=== PATIENT | female | born 1960 | race Caucasian/White ===

== ENCOUNTER 2017-09-17 15:03 | Inpatient (IN) ==
[2017-09-17] MEDS ORDERED: methylPREDNISolone SOD SUC 125 MG/2 ML VIAL IV STA (15:25)
[2017-09-17] MEDS ORDERED: KETOROLAC 30 MG/1 ML VIAL IV STA (15:25)
[2017-09-17] MEDS ORDERED: AZITHROMYCIN INJ 500 MG in SODIUM CHLORIDE 0.9% 250 ML IV STA (15:25)
[2017-09-17] MEDS ORDERED: ALBUTEROL/IPRATROPIUM 3 ML NEB RESP TX STA (15:25)
[2017-09-17] MEDS ORDERED: cefTRIAXone 1,000 MG in SODIUM CHLORIDE 0.9% 100 ML IV STA (15:28)
[2017-09-17] MEDS ORDERED: TERBUTALINE 1 MG/1 ML VIAL SUBCUT ONE (16:14)
[2017-09-17] MEDS ORDERED: cefTRIAXone 1,000 MG VIAL ONE (16:15)
[2017-09-17] MEDS ORDERED: methylPREDNISolone SOD SUC 125 MG/2 ML VIAL ONE (16:15)
[2017-09-17] MEDS ORDERED: KETOROLAC 30 MG/1 ML VIAL ONE (16:15)
[2017-09-17 16:19] LABS: Basophils # 0.1 10*3/uL (0.0-0.2); Basophils % 0.3 % (0.0-0.8); Eosinophils # 0.2 10*3/uL (0.0-0.87); Eosinophils % 0.9 % (0.00-10.9); Hematocrit 32.4 VOL% (35.7-47.0); Hemoglobin 10.7 GM/DL (12.0-16.0); Immature Granulocytes % 0.4 %; Immature Granulocytes Absolute 0.07 #; Lymphocytes # 3.8 10*3/uL (1.4-4.0); Lymphocytes % 21.3 % (21.3-54.2); Mean Corpuscular Hemoglobin 28 PG (27-34); Mean Corpuscular Volume 83.5 FL (87-102); Monocytes # 1.3 10*3/uL (0.11-0.8); Monocytes % 7.1 % (1.7-12.7); Neutrophils # 12.5 10*3/uL (1.4-7.4); Platelet Count 540 T/CUMM (130-400); Red Blood Count 3.88 MC/CUMM (3.8-5.5); Red Cell Distribution Width 13.7 % (9.3-17.3); White Blood Count 17.8 T/CUMM (4-12)
[2017-09-17 16:29] LABS: PT Patient Result 10.3 SECS; Partial Thromboplastin Time 34.6 SECS (0-40)
[2017-09-17 16:48] LABS: Alanine Aminotransferase 22 U/L (13-56); Albumin 2.9 G/DL (3.4-5.0); Alkaline Phosphatase 157 U/L (45-117); Aspartate Amino Transferase 19 U/L (0-37); Blood Urea Nitrogen 16 MG/DL (7-18); Calcium 9.4 MG/DL (8.5-10.1); Glucose 72 MG/DL (74-106); Osmolality,Calculated 267.2 MOS/KG (273-304); Potassium 3.7 MMOL/L (3.5-5.1); Sodium 134 MMOL/L (136-145); Total Protein 7.6 G/DL (6.4-8.3); Troponin I Only < 0.015 NG/ML (0.00-0.045)
[2017-09-17] MEDS: TERBUTALINE 1 MG/1 ML VIAL SUBCUT SCH ×2 (16:49→17:25)
[2017-09-17] MEDS ORDERED: DEXTROSE 50% 25 GM/50 ML VIAL IV PRN (22:04)
[2017-09-17] MEDS ORDERED: GLUCAGON 1 MG VIAL IM PRN (22:04)
[2017-09-17] MEDS ORDERED: ALBUTEROL/IPRATROPIUM 3 ML NEB RESP TX PRN (22:04)
[2017-09-17] MEDS ORDERED: ONDANSETRON 4 MG/2 ML VIAL IV PRN (22:04)
[2017-09-18] MEDS: LEVOFLOXACIN INJ 750 MG in PREMIX 1 EACH IV SCH ×3 (00:15→22:02)
[2017-09-18] MEDS: INSULIN REGULAR 100 UNIT/ML SUBCUT SCH ×5 (00:15→21:14)
[2017-09-18] MEDS: methylPREDNISolone SOD SUC 125 MG/2 ML VIAL IV SCH ×4 (00:15→21:13)
[2017-09-18] MEDS: VENLAFAXINE XR 75 MG CAPSULE PO SCH (08:50)
[2017-09-18] MEDS: CLOPIDOGREL 75 MG TABLET PO SCH (08:50)
[2017-09-18] MEDS: metFORMIN 500 MG TABLET PO SCH ×2 (08:50→16:06)
[2017-09-18] MEDS: LISINOPRIL/HCTZ 10-12.5 MG TABLET PO SCH (08:50)
[2017-09-18] MEDS: PANTOPRAZOLE 40 MG TABLET PO SCH (08:50)
[2017-09-18] MEDS: SIMVASTATIN 40 MG TABLET PO SCH ×2 (08:51→21:14)
[2017-09-18] MEDS: CARVEDILOL 6.25 MG TABLET PO SCH ×2 (08:51→21:13)
[2017-09-18] MEDS: RANOLAZINE 500 MG TABLET PO SCH ×2 (08:51→21:13)
[2017-09-18 09:19] LABS: Basophils % 0.1 % (0.0-0.8); Hematocrit 34.4 VOL% (35.7-47.0); Hemoglobin 11.2 GM/DL (12.0-16.0); Immature Granulocytes % 1.1 %; Immature Granulocytes Absolute 0.15 #; Lymphocytes # 1.1 10*3/uL (1.4-4.0); Lymphocytes % 7.8 % (21.3-54.2); Mean Corpuscular HGB Conc 32.6 GM/DL (32-36); Mean Corpuscular Hemoglobin 27 PG (27-34); Mean Corpuscular Volume 83.7 FL (87-102); Mean Platelet Volume 9.1 FL (9.6-12.0); Monocytes # 0.2 10*3/uL (0.11-0.8); Monocytes % 1.5 % (1.7-12.7); Neutrophils % 89.5 % (38.7-73.9); Platelet Count 551 T/CUMM (130-400); Red Blood Count 4.11 MC/CUMM (3.8-5.5); Red Cell Distribution Width 13.5 % (9.3-17.3); White Blood Count 13.4 T/CUMM (4-12)
[2017-09-18 09:48] LABS: Calcium 9.2 MG/DL (8.5-10.1); Magnesium 1.9 MG/DL (1.8-2.4); Potassium 4.7 MMOL/L (3.5-5.1)
[2017-09-18] MEDS: NICOTINE 14 MG/24 HR PATCH TRANSDERM SCH (12:56)
[2017-09-18] MEDS: FLUTICASONE/SALMETEROL 250-50 DISKUS 14 DOSE INH SCH ×2 (16:06→21:14)
[2017-09-19 03:07] LABS: Basophils % 0.1 % (0.0-0.8); Hematocrit 29.4 VOL% (35.7-47.0); Hemoglobin 9.9 GM/DL (12.0-16.0); Immature Granulocytes % 3.5 %; Immature Granulocytes Absolute 0.75 #; Lymphocytes # 1.1 10*3/uL (1.4-4.0); Lymphocytes % 5.2 % (21.3-54.2); Mean Corpuscular HGB Conc 33.7 GM/DL (32-36); Mean Corpuscular Hemoglobin 27 PG (27-34); Mean Corpuscular Volume 81.4 FL (87-102); Mean Platelet Volume 9.1 FL (9.6-12.0); Monocytes # 0.4 10*3/uL (0.11-0.8); Monocytes % 1.9 % (1.7-12.7); Neutrophils % 89.3 % (38.7-73.9); Platelet Count 500 T/CUMM (130-400); Red Blood Count 3.61 MC/CUMM (3.8-5.5); Red Cell Distribution Width 13.7 % (9.3-17.3); White Blood Count 21.3 T/CUMM (4-12)
[2017-09-19 03:50] LABS: Calcium 8.6 MG/DL (8.5-10.1); Osmolality,Calculated 278.8 MOS/KG (273-304); Potassium 4.5 MMOL/L (3.5-5.1)
[2017-09-19 04:48] LABS: Band Neutrophils 2 % (0-10); Lymphocytes 4 % (20-55); Platelet Estimate Increased; Segmented Neutrophils 94 % (50-85); Total Cells Counted 100
[2017-09-19] MEDS: VENLAFAXINE XR 75 MG CAPSULE PO SCH (08:27)
[2017-09-19] MEDS: LISINOPRIL/HCTZ 10-12.5 MG TABLET PO SCH (08:27)
[2017-09-19] MEDS: metFORMIN 500 MG TABLET PO SCH ×2 (08:27→16:30)
[2017-09-19] MEDS: NICOTINE 14 MG/24 HR PATCH TRANSDERM SCH (08:27)
[2017-09-19] MEDS: SIMVASTATIN 40 MG TABLET PO SCH ×2 (08:27→21:28)
[2017-09-19] MEDS: CLOPIDOGREL 75 MG TABLET PO SCH (08:27)
[2017-09-19] MEDS: CARVEDILOL 6.25 MG TABLET PO SCH ×2 (08:28→21:28)
[2017-09-19] MEDS: RANOLAZINE 500 MG TABLET PO SCH ×2 (08:28→21:28)
[2017-09-19] MEDS: methylPREDNISolone SOD SUC 125 MG/2 ML VIAL IV SCH ×3 (08:28→21:27)
[2017-09-19] MEDS: PANTOPRAZOLE 40 MG TABLET PO SCH (08:28)
[2017-09-19] MEDS: INSULIN REGULAR 100 UNIT/ML SUBCUT SCH ×4 (08:32→21:28)
[2017-09-19] MEDS: FLUTICASONE/SALMETEROL 250-50 DISKUS 14 DOSE INH SCH ×2 (08:35→21:28)
[2017-09-19] MEDS: guaiFENesin 200 MG/10 ML UDCUP PO SCH ×2 (16:30→21:30)
[2017-09-19] MEDS: LEVOFLOXACIN INJ 750 MG in PREMIX 1 EACH IV SCH (21:30)
[2017-09-20] MEDS: guaiFENesin 200 MG/10 ML UDCUP PO SCH ×4 (05:06→21:37)
[2017-09-20 05:41] LABS: Basophils % 0.1 % (0.0-0.8); Hematocrit 32.7 VOL% (35.7-47.0); Hemoglobin 10.7 GM/DL (12.0-16.0); Immature Granulocytes % 1.6 %; Immature Granulocytes Absolute 0.26 #; Lymphocytes # 1.1 10*3/uL (1.4-4.0); Lymphocytes % 6.5 % (21.3-54.2); Mean Corpuscular HGB Conc 32.7 GM/DL (32-36); Mean Corpuscular Hemoglobin 27 PG (27-34); Mean Corpuscular Volume 82.6 FL (87-102); Mean Platelet Volume 8.6 FL (9.6-12.0); Monocytes # 0.2 10*3/uL (0.11-0.8); Monocytes % 1.2 % (1.7-12.7); Neutrophils # 15.2 10*3/uL (1.4-7.4); Neutrophils % 90.6 % (38.7-73.9); Platelet Count 488 T/CUMM (130-400); Red Blood Count 3.96 MC/CUMM (3.8-5.5); Red Cell Distribution Width 13.8 % (9.3-17.3); White Blood Count 16.7 T/CUMM (4-12)
[2017-09-20 06:07] LABS: Calcium 8.9 MG/DL (8.5-10.1); Magnesium 1.9 MG/DL (1.8-2.4); Osmolality,Calculated 287.5 MOS/KG (273-304); Potassium 4.2 MMOL/L (3.5-5.1)
[2017-09-20 06:45] LABS: Band Neutrophils 4 % (0-10); Lymphocytes 7 % (20-55); Platelet Estimate Increased; Segmented Neutrophils 88 % (50-85); Total Cells Counted 100
[2017-09-20] MEDS: INSULIN REGULAR 100 UNIT/ML SUBCUT SCH ×4 (08:52→21:37)
[2017-09-20] MEDS: methylPREDNISolone SOD SUC 125 MG/2 ML VIAL IV SCH (09:40)
[2017-09-20] MEDS: SIMVASTATIN 40 MG TABLET PO SCH ×2 (09:40→21:37)
[2017-09-20] MEDS: VENLAFAXINE XR 75 MG CAPSULE PO SCH (09:40)
[2017-09-20] MEDS: LISINOPRIL/HCTZ 10-12.5 MG TABLET PO SCH (09:40)
[2017-09-20] MEDS: metFORMIN 500 MG TABLET PO SCH ×2 (09:40→18:00)
[2017-09-20] MEDS: RANOLAZINE 500 MG TABLET PO SCH ×2 (09:40→21:37)
[2017-09-20] MEDS: PANTOPRAZOLE 40 MG TABLET PO SCH (09:41)
[2017-09-20] MEDS: CARVEDILOL 6.25 MG TABLET PO SCH ×2 (09:41→21:37)
[2017-09-20] MEDS: NICOTINE 14 MG/24 HR PATCH TRANSDERM SCH (09:41)
[2017-09-20] MEDS: CLOPIDOGREL 75 MG TABLET PO SCH (09:41)
[2017-09-20] MEDS: FLUTICASONE/SALMETEROL 250-50 DISKUS 14 DOSE INH SCH ×2 (09:42→21:38)
[2017-09-20] MEDS ORDERED: hydrALAZINE 20 MG/1 ML VIAL IV PRN (10:19)
[2017-09-20] MEDS ORDERED: oxyCODONE/ACETAMINOPHEN 5-325 MG TABLET PO PRN (10:32)
[2017-09-20] MEDS: oxyCODONE/ACETAMINOPHEN 5-325 MG TABLET PO PRN ×2 (11:05→18:00)
[2017-09-20] MEDS: methylPREDNISolone SOD SUC 40 MG/1 ML VIAL IV SCH ×2 (13:46→21:37)
[2017-09-20] MEDS: LEVOFLOXACIN INJ 750 MG in PREMIX 1 EACH IV SCH (21:37)
[2017-09-21] MEDS: oxyCODONE/ACETAMINOPHEN 5-325 MG TABLET PO PRN ×3 (01:19→13:34)
[2017-09-21 03:20] LABS: Basophils % 0.1 % (0.0-0.8); Hematocrit 32.1 VOL% (35.7-47.0); Hemoglobin 10.8 GM/DL (12.0-16.0); Immature Granulocytes % 2.5 %; Immature Granulocytes Absolute 0.37 #; Lymphocytes # 1.2 10*3/uL (1.4-4.0); Lymphocytes % 7.9 % (21.3-54.2); Mean Corpuscular HGB Conc 33.6 GM/DL (32-36); Mean Corpuscular Hemoglobin 28 PG (27-34); Mean Corpuscular Volume 81.9 FL (87-102); Mean Platelet Volume 8.8 FL (9.6-12.0); Monocytes # 0.3 10*3/uL (0.11-0.8); Monocytes % 2.3 % (1.7-12.7); Neutrophils # 12.7 10*3/uL (1.4-7.4); Neutrophils % 87.2 % (38.7-73.9); Platelet Count 473 T/CUMM (130-400); Red Blood Count 3.92 MC/CUMM (3.8-5.5); Red Cell Distribution Width 13.9 % (9.3-17.3); White Blood Count 14.6 T/CUMM (4-12)
[2017-09-21 03:53] LABS: Calcium 8.8 MG/DL (8.5-10.1); Magnesium 1.7 MG/DL (1.8-2.4); Osmolality,Calculated 288.4 MOS/KG (273-304); Potassium 4.2 MMOL/L (3.5-5.1)
[2017-09-21] MEDS: methylPREDNISolone SOD SUC 40 MG/1 ML VIAL IV SCH ×2 (04:26→11:30)
[2017-09-21] MEDS: guaiFENesin 200 MG/10 ML UDCUP PO SCH ×2 (04:26→11:30)
[2017-09-21] MEDS: VENLAFAXINE XR 75 MG CAPSULE PO SCH (08:56)
[2017-09-21] MEDS: SIMVASTATIN 40 MG TABLET PO SCH (08:56)
[2017-09-21] MEDS: CLOPIDOGREL 75 MG TABLET PO SCH (08:56)
[2017-09-21] MEDS: RANOLAZINE 500 MG TABLET PO SCH (08:56)
[2017-09-21] MEDS: metFORMIN 500 MG TABLET PO SCH (08:56)
[2017-09-21] MEDS: NICOTINE 14 MG/24 HR PATCH TRANSDERM SCH (08:56)
[2017-09-21] MEDS: CARVEDILOL 6.25 MG TABLET PO SCH (08:56)
[2017-09-21] MEDS: PANTOPRAZOLE 40 MG TABLET PO SCH (08:56)
[2017-09-21] MEDS: FLUTICASONE/SALMETEROL 250-50 DISKUS 14 DOSE INH SCH (08:57)
[2017-09-21] MEDS: LISINOPRIL/HCTZ 10-12.5 MG TABLET PO SCH (09:03)
[2017-09-21] MEDS: INSULIN REGULAR 100 UNIT/ML SUBCUT SCH ×2 (10:02→12:24)
[2017-09-21 12:50] VITALS: BP 158/87
[2017-09-21] MEDS: LEVOFLOXACIN INJ 750 MG in PREMIX 1 EACH IV SCH (15:03)
== END 2017-09-21 16:41 | disposition home or self-care (01) | DRG 190 ==
LOC: N.ED 15:03 → N.EDINP 17:46 → N.TELEN 18:58
PROVIDERS: ADMIT Family Medicine; ATTEND Family Medicine

== ENCOUNTER 2018-10-24 15:07 | Inpatient (IN) ==
[2018-10-24 18:29] LABS: Basophils # 0.1 10*3/uL (0.0-0.2); Basophils % 0.4 % (0.0-0.8); Eosinophils % 0.2 % (0.00-10.9); Hematocrit 32.8 VOL% (35.7-47.0); Hemoglobin 10.1 GM/DL (12.0-16.0); Immature Granulocytes % 0.4 %; Immature Granulocytes Absolute 0.05 #; Lymphocytes # 3.2 10*3/uL (1.4-4.0); Lymphocytes % 25.7 % (21.3-54.2); Mean Corpuscular HGB Conc 30.8 GM/DL (32-36); Mean Corpuscular Hemoglobin 23 PG (27-34); Monocytes # 0.9 10*3/uL (0.11-0.8); Monocytes % 7.1 % (1.7-12.7); NRBC # 0.02 10*3/uL; Neutrophils # 8.4 10*3/uL (1.4-7.4); Neutrophils % 66.2 % (38.7-73.9); Platelet Count 444 T/CUMM (130-400); Red Blood Count 4.43 MC/CUMM (3.8-5.5); White Blood Count 12.6 T/CUMM (4-12)
[2018-10-24 18:50] LABS: Albumin 3.4 G/DL (3.4-5.0); Bilirubin,Total 0.9 MG/DL (0.2-1.0); Calcium 8.7 MG/DL (8.5-10.1); Potassium 4.5 MMOL/L (3.5-5.1); Total Protein 6.7 G/DL (6.4-8.3)
[2018-10-24] MEDS ORDERED: cefTRIAXone 1,000 MG in SODIUM CHLORIDE 0.9% 100 ML IV STA (19:07)
[2018-10-24] MEDS ORDERED: FUROSEMIDE 20 MG/2 ML VIAL IV STA (19:07)
[2018-10-24] MEDS ORDERED: DEXTROSE 50% 25 GM/50 ML VIAL IV PRN (20:01)
[2018-10-24] MEDS ORDERED: ACETAMINOPHEN 325 MG TABLET PO PRN (20:01)
[2018-10-24] MEDS ORDERED: MAGNESIUM SULF RIDER 2 GM in PREMIX 1 EACH IV PRN (20:01)
[2018-10-24] MEDS ORDERED: MAGNESIUM SULF RIDER 4 GM in PREMIX 1 EACH IV PRN (20:01)
[2018-10-24] MEDS ORDERED: GLUCAGON 1 MG VIAL IM PRN (20:01)
[2018-10-24] MEDS ORDERED: ONDANSETRON 4 MG/2 ML VIAL IV PRN (20:01)
[2018-10-24] MEDS: SIMVASTATIN 40 MG TABLET PO SCH (21:20)
[2018-10-24] MEDS: RANOLAZINE 500 MG TABLET PO SCH (21:20)
[2018-10-24] MEDS: INSULIN REGULAR 100 UNIT/ML SUBCUT SCH (21:20)
[2018-10-24] MEDS: CARVEDILOL 6.25 MG TABLET PO SCH (22:42)
[2018-10-25] MEDS: ALBUTEROL/IPRATROPIUM 3 ML NEB RESP TX SCH ×4 (00:43→19:09)
[2018-10-25 06:53] LABS: Basophils % 0.3 % (0.0-0.8); Eosinophils # 0.1 10*3/uL (0.0-0.87); Eosinophils % 0.6 % (0.00-10.9); Hematocrit 30.2 VOL% (35.7-47.0); Hemoglobin 9.3 GM/DL (12.0-16.0); Immature Granulocytes % 0.3 %; Immature Granulocytes Absolute 0.03 #; Lymphocytes # 2.1 10*3/uL (1.4-4.0); Lymphocytes % 23.9 % (21.3-54.2); Mean Corpuscular HGB Conc 30.8 GM/DL (32-36); Mean Corpuscular Hemoglobin 23 PG (27-34); Mean Corpuscular Volume 73.7 FL (87-102); Mean Platelet Volume 9.8 FL (9.6-12.0); Monocytes # 0.6 10*3/uL (0.11-0.8); Monocytes % 7.1 % (1.7-12.7); Neutrophils % 67.8 % (38.7-73.9); Platelet Count 358 T/CUMM (130-400); Red Cell Distribution Width 16.8 % (9.3-17.3); White Blood Count 8.9 T/CUMM (4-12)
[2018-10-25 07:21] LABS: Albumin 2.8 G/DL (3.4-5.0); Bilirubin,Total 0.6 MG/DL (0.2-1.0); Calcium 8.3 MG/DL (8.5-10.1); Osmolality,Calculated 285.5 MOS/KG (273-304); Potassium 3.5 MMOL/L (3.5-5.1); Total Protein 5.8 G/DL (6.4-8.3)
[2018-10-25] MEDS: INSULIN REGULAR 100 UNIT/ML SUBCUT SCH ×4 (07:34→20:54)
[2018-10-25] MEDS: CARVEDILOL 6.25 MG TABLET PO SCH ×2 (08:52→20:53)
[2018-10-25] MEDS: RANOLAZINE 500 MG TABLET PO SCH ×2 (08:52→20:53)
[2018-10-25] MEDS: CLOPIDOGREL 75 MG TABLET PO SCH (08:52)
[2018-10-25] MEDS: VENLAFAXINE XR 75 MG CAPSULE PO SCH (08:52)
[2018-10-25] MEDS: NICOTINE 21 MG/24 HR PATCH TRANSDERM SCH (08:53)
[2018-10-25] MEDS: PANTOPRAZOLE 40 MG TABLET PO SCH (08:53)
[2018-10-25] MEDS: ENOXAPARIN 40 MG/0.4 ML SYRINGE SUBCUT SCH (08:53)
[2018-10-25] MEDS: ASPIRIN CHEW 81 MG TABLET PO SCH (08:53)
[2018-10-25] MEDS: FUROSEMIDE 40 MG/4 ML VIAL IV SCH ×2 (08:53→15:05)
[2018-10-25] MEDS ORDERED: NON-FORMULARY MEDICATION (Umeclidinium Brm/Vilanterol Tr [Anoro Ellipta] 1 PUFF) INH SCH (09:00)
[2018-10-25] MEDS ORDERED: SKIN HEALING OINT (AQUAPHOR) 50 GM TUBE TOP PRN (15:22)
[2018-10-25] MEDS: POTASSIUM CHLORIDE 20 MEQ TABLET PO SCH (16:28)
[2018-10-25] MEDS: SIMVASTATIN 40 MG TABLET PO SCH (20:52)
[2018-10-25] MEDS: cefTRIAXone 1,000 MG in SYRINGE 1 EACH IV SCH (20:52)
[2018-10-26] MEDS: ALBUTEROL/IPRATROPIUM 3 ML NEB RESP TX SCH ×4 (00:10→19:20)
[2018-10-26] MEDS ORDERED: NITROGLYCERIN SL 0.4 MG TABLET SL ONE (01:44)
[2018-10-26] MEDS ORDERED: MORPHINE 4 MG/1 ML VIAL ONE (01:45)
[2018-10-26] MEDS ORDERED: ALUM/MAG/SIMETH/LIDO VISC 1:1 30 ML BOTTLE PO ONE (01:54)
[2018-10-26 02:22] LABS: Basophils # 0.1 10*3/uL (0.0-0.2); Basophils % 0.4 % (0.0-0.8); Eosinophils # 0.1 10*3/uL (0.0-0.87); Eosinophils % 0.6 % (0.00-10.9); Hematocrit 33.2 VOL% (35.7-47.0); Hemoglobin 10.1 GM/DL (12.0-16.0); Immature Granulocytes % 0.4 %; Immature Granulocytes Absolute 0.05 #; Lymphocytes # 3.5 10*3/uL (1.4-4.0); Lymphocytes % 26.6 % (21.3-54.2); Mean Corpuscular HGB Conc 30.4 GM/DL (32-36); Mean Corpuscular Hemoglobin 23 PG (27-34); Mean Corpuscular Volume 74.4 FL (87-102); Mean Platelet Volume 10.1 FL (9.6-12.0); Monocytes % 7.7 % (1.7-12.7); Neutrophils # 8.5 10*3/uL (1.4-7.4); Neutrophils % 64.3 % (38.7-73.9); Platelet Count 438 T/CUMM (130-400); Red Blood Count 4.46 MC/CUMM (3.8-5.5); Red Cell Distribution Width 16.9 % (9.3-17.3); White Blood Count 13.2 T/CUMM (4-12)
[2018-10-26 02:27] LABS: Calcium 8.4 MG/DL (8.5-10.1); Osmolality,Calculated 289.4 MOS/KG (273-304); Potassium 4.5 MMOL/L (3.5-5.1)
[2018-10-26] MEDS: INSULIN REGULAR 100 UNIT/ML SUBCUT SCH ×4 (08:02→20:48)
[2018-10-26] MEDS: CLOPIDOGREL 75 MG TABLET PO SCH (08:03)
[2018-10-26] MEDS: RANOLAZINE 500 MG TABLET PO SCH ×2 (08:03→20:47)
[2018-10-26] MEDS: FUROSEMIDE 40 MG/4 ML VIAL IV SCH ×2 (08:03→16:16)
[2018-10-26] MEDS: CARVEDILOL 6.25 MG TABLET PO SCH ×2 (08:03→20:48)
[2018-10-26] MEDS: POTASSIUM CHLORIDE 20 MEQ TABLET PO SCH (08:03)
[2018-10-26] MEDS: VENLAFAXINE XR 75 MG CAPSULE PO SCH (08:03)
[2018-10-26] MEDS: ASPIRIN CHEW 81 MG TABLET PO SCH (08:03)
[2018-10-26] MEDS: PANTOPRAZOLE 40 MG TABLET PO SCH (08:03)
[2018-10-26] MEDS: ENOXAPARIN 40 MG/0.4 ML SYRINGE SUBCUT SCH (08:04)
[2018-10-26] MEDS: NICOTINE 21 MG/24 HR PATCH TRANSDERM SCH (08:04)
[2018-10-26] MEDS: hydrALAZINE 25 MG TABLET PO SCH ×3 (08:12→20:47)
[2018-10-26] MEDS: ALBUMIN 25% 25 GM in PREMIX 1 EACH IV SCH ×2 (15:09→23:47)
[2018-10-26] MEDS: SIMVASTATIN 40 MG TABLET PO SCH (20:47)
[2018-10-26] MEDS: cefTRIAXone 1,000 MG in SYRINGE 1 EACH IV SCH (20:48)
[2018-10-27] MEDS: ALBUTEROL/IPRATROPIUM 3 ML NEB RESP TX SCH ×3 (00:10→20:04)
[2018-10-27] MEDS: ALBUMIN 25% 25 GM in PREMIX 1 EACH IV SCH ×2 (06:30→18:19)
[2018-10-27 06:59] LABS: Basophils % 0.5 % (0.0-0.8); Eosinophils # 0.2 10*3/uL (0.0-0.87); Eosinophils % 1.9 % (0.00-10.9); Hematocrit 31.3 VOL% (35.7-47.0); Hemoglobin 9.3 GM/DL (12.0-16.0); Immature Granulocytes % 0.2 %; Immature Granulocytes Absolute 0.02 #; Mean Corpuscular HGB Conc 29.7 GM/DL (32-36); Mean Corpuscular Hemoglobin 22 PG (27-34); Mean Corpuscular Volume 74.9 FL (87-102); Mean Platelet Volume 10.2 FL (9.6-12.0); Monocytes # 0.6 10*3/uL (0.11-0.8); Monocytes % 6.7 % (1.7-12.7); Neutrophils % 56.7 % (38.7-73.9); Platelet Count 338 T/CUMM (130-400); Red Blood Count 4.18 MC/CUMM (3.8-5.5); White Blood Count 8.8 T/CUMM (4-12)
[2018-10-27 07:50] LABS: Calcium 8.4 MG/DL (8.5-10.1); Osmolality,Calculated 281.7 MOS/KG (273-304); Potassium 3.7 MMOL/L (3.5-5.1)
[2018-10-27 08:35] LABS: INR 1.3; PT Patient Result 13.9 SECS
[2018-10-27] MEDS: NICOTINE 21 MG/24 HR PATCH TRANSDERM SCH (10:30)
[2018-10-27] MEDS: POTASSIUM CHLORIDE 20 MEQ TABLET PO SCH (10:30)
[2018-10-27] MEDS: VENLAFAXINE XR 75 MG CAPSULE PO SCH (10:30)
[2018-10-27] MEDS: CARVEDILOL 6.25 MG TABLET PO SCH ×2 (10:30→21:13)
[2018-10-27] MEDS: PANTOPRAZOLE 40 MG TABLET PO SCH (10:31)
[2018-10-27] MEDS: hydrALAZINE 25 MG TABLET PO SCH ×3 (10:31→21:13)
[2018-10-27 10:32] LABS: Lymphocytes,Pleural Fluid 78 %; Monocytes,Pleural Fluid 7 %; Neutrophils,Pleural Fluid 15 %; RBC,Pleural Fluid 572 T/CUMM
[2018-10-27] MEDS: FUROSEMIDE 40 MG/4 ML VIAL IV SCH ×2 (10:32→18:26)
[2018-10-27] MEDS: RANOLAZINE 500 MG TABLET PO SCH ×2 (10:38→21:13)
[2018-10-27] MEDS: ASPIRIN CHEW 81 MG TABLET PO SCH (10:38)
[2018-10-27] MEDS: INSULIN REGULAR 100 UNIT/ML SUBCUT SCH ×4 (10:39→22:16)
[2018-10-27] MEDS: cefTRIAXone 1,000 MG in SYRINGE 1 EACH IV SCH (21:09)
[2018-10-27] MEDS: SIMVASTATIN 40 MG TABLET PO SCH (21:21)
[2018-10-28] MEDS: ALBUTEROL/IPRATROPIUM 3 ML NEB RESP TX SCH ×4 (02:03→19:01)
[2018-10-28 06:23] LABS: Basophils # 0.1 10*3/uL (0.0-0.2); Basophils % 0.5 % (0.0-0.8); Eosinophils # 0.2 10*3/uL (0.0-0.87); Hematocrit 31.7 VOL% (35.7-47.0); Hemoglobin 9.5 GM/DL (12.0-16.0); Immature Granulocytes % 0.5 %; Immature Granulocytes Absolute 0.05 #; Lymphocytes # 2.8 10*3/uL (1.4-4.0); Lymphocytes % 25.3 % (21.3-54.2); Mean Corpuscular Hemoglobin 23 PG (27-34); Mean Corpuscular Volume 74.9 FL (87-102); Mean Platelet Volume 10.2 FL (9.6-12.0); Monocytes # 0.8 10*3/uL (0.11-0.8); Neutrophils % 64.7 % (38.7-73.9); Platelet Count 333 T/CUMM (130-400); Red Blood Count 4.23 MC/CUMM (3.8-5.5); Red Cell Distribution Width 16.8 % (9.3-17.3); White Blood Count 10.9 T/CUMM (4-12)
[2018-10-28] MEDS: INSULIN REGULAR 100 UNIT/ML SUBCUT SCH ×4 (06:34→21:33)
[2018-10-28 06:45] LABS: Calcium 8.9 MG/DL (8.5-10.1); Osmolality,Calculated 283.5 MOS/KG (273-304); Potassium 3.6 MMOL/L (3.5-5.1)
[2018-10-28] MEDS: VENLAFAXINE XR 75 MG CAPSULE PO SCH (10:03)
[2018-10-28] MEDS: RANOLAZINE 500 MG TABLET PO SCH ×2 (10:03→20:51)
[2018-10-28] MEDS: ASPIRIN CHEW 81 MG TABLET PO SCH (10:03)
[2018-10-28] MEDS: CARVEDILOL 6.25 MG TABLET PO SCH ×2 (10:03→21:33)
[2018-10-28] MEDS: POTASSIUM CHLORIDE 20 MEQ TABLET PO SCH (10:04)
[2018-10-28] MEDS: NICOTINE 21 MG/24 HR PATCH TRANSDERM SCH (10:04)
[2018-10-28] MEDS: hydrALAZINE 25 MG TABLET PO SCH ×3 (10:04→20:52)
[2018-10-28] MEDS: FUROSEMIDE 40 MG/4 ML VIAL IV SCH ×2 (10:04→17:09)
[2018-10-28] MEDS: PANTOPRAZOLE 40 MG TABLET PO SCH (10:15)
[2018-10-28] MEDS ORDERED: POTASSIUM CHLORIDE RIDER 10 MEQ in PREMIX 1 EACH IV PRN (11:04)
[2018-10-28] MEDS ORDERED: MAGNESIUM SULF RIDER 2 GM in PREMIX 1 EACH IV PRN (11:04)
[2018-10-28] MEDS: cefTRIAXone 1,000 MG in SYRINGE 1 EACH IV SCH (20:52)
[2018-10-28] MEDS: SIMVASTATIN 40 MG TABLET PO SCH (20:52)
[2018-10-28] MEDS: ENOXAPARIN 40 MG/0.4 ML SYRINGE SUBCUT SCH (20:53)
[2018-10-29] MEDS: ALBUTEROL/IPRATROPIUM 3 ML NEB RESP TX SCH ×5 (01:39→20:35)
[2018-10-29 05:46] LABS: Basophils # 0.1 10*3/uL (0.0-0.2); Basophils % 0.5 % (0.0-0.8); Eosinophils # 0.3 10*3/uL (0.0-0.87); Eosinophils % 2.7 % (0.00-10.9); Hematocrit 31.7 VOL% (35.7-47.0); Hemoglobin 9.6 GM/DL (12.0-16.0); Immature Granulocytes % 0.3 %; Immature Granulocytes Absolute 0.04 #; Lymphocytes # 3.1 10*3/uL (1.4-4.0); Lymphocytes % 26.5 % (21.3-54.2); Mean Corpuscular HGB Conc 30.3 GM/DL (32-36); Mean Corpuscular Hemoglobin 23 PG (27-34); Mean Corpuscular Volume 74.2 FL (87-102); Mean Platelet Volume 10.2 FL (9.6-12.0); Monocytes # 0.9 10*3/uL (0.11-0.8); Neutrophils # 7.2 10*3/uL (1.4-7.4); Platelet Count 349 T/CUMM (130-400); Red Blood Count 4.27 MC/CUMM (3.8-5.5); White Blood Count 11.7 T/CUMM (4-12)
[2018-10-29 06:03] LABS: Calcium 8.6 MG/DL (8.5-10.1); Osmolality,Calculated 279.8 MOS/KG (273-304); Potassium 3.7 MMOL/L (3.5-5.1)
[2018-10-29 06:10] LABS: Calcium 8.5 MG/DL (8.5-10.1); Osmolality,Calculated 281.7 MOS/KG (273-304); Potassium 3.7 MMOL/L (3.5-5.1)
[2018-10-29] MEDS: INSULIN REGULAR 100 UNIT/ML SUBCUT SCH ×4 (06:50→21:01)
[2018-10-29] MEDS: hydrALAZINE 25 MG TABLET PO SCH ×3 (08:26→20:52)
[2018-10-29] MEDS: CARVEDILOL 12.5 MG TABLET PO SCH ×2 (08:26→16:31)
[2018-10-29] MEDS: FUROSEMIDE 40 MG/4 ML VIAL IV SCH ×2 (08:26→16:32)
[2018-10-29] MEDS: ASPIRIN CHEW 81 MG TABLET PO SCH (08:26)
[2018-10-29] MEDS ORDERED: diphenhydrAMINE CAP 25 MG CAPSULE PO ONE (09:51)
[2018-10-29] MEDS ORDERED: DIAZEPAM 5 MG TABLET PO ONE (09:51)
[2018-10-29] MEDS ORDERED: SODIUM CHLORIDE 0.45% 1,000 ML IV SCH (10:00)
[2018-10-29] MEDS ORDERED: fentaNYL 100 MCG/2 ML VIAL ONE (13:31)
[2018-10-29] MEDS ORDERED: LIDOCAINE 1% 20 ML VIAL ONE (13:31)
[2018-10-29] MEDS ORDERED: MIDAZOLAM 2 MG/2 ML VIAL ONE (13:31)
[2018-10-29] MEDS ORDERED: NITROGLYCERIN DRIP 50 MG/250 ML BOTTLE IV ONE (13:32)
[2018-10-29] MEDS ORDERED: VERAPAMIL 5 MG/2 ML VIAL ONE (13:32)
[2018-10-29] MEDS ORDERED: ENOXAPARIN 30 MG/0.3 ML SYRINGE ONE (13:49)
[2018-10-29] MEDS ORDERED: TIROFIBAN 5,000 MCG/100 ML PREMIX IV ONE (14:00)
[2018-10-29] MEDS ORDERED: CLOPIDOGREL 300 MG TABLET ONE (14:26)
[2018-10-29] MEDS ORDERED: ZALEPLON 5 MG CAPSULE PO PRN (14:40)
[2018-10-29] MEDS ORDERED: DEXTROSE 50% 25 GM/50 ML SYRINGE IV PRN (14:40)
[2018-10-29] MEDS ORDERED: GLUCAGON 1 MG VIAL IM PRN (14:40)
[2018-10-29] MEDS ORDERED: NITROGLYCERIN SL 0.4 MG TABLET SL PRN (14:40)
[2018-10-29] MEDS: TIROFIBAN 5,000 MCG/100 ML PREMIX IV SCH (14:43)
[2018-10-29] MEDS ORDERED: CLOPIDOGREL 75 MG TABLET PO SCH (14:47)
[2018-10-29] MEDS: VENLAFAXINE XR 75 MG CAPSULE PO SCH (15:31)
[2018-10-29] MEDS: RANOLAZINE 500 MG TABLET PO SCH ×2 (15:31→20:52)
[2018-10-29] MEDS: POTASSIUM CHLORIDE 20 MEQ TABLET PO SCH (16:31)
[2018-10-29] MEDS: PANTOPRAZOLE 40 MG TABLET PO SCH (16:31)
[2018-10-29] MEDS: NICOTINE 21 MG/24 HR PATCH TRANSDERM SCH (16:33)
[2018-10-29] MEDS: cefTRIAXone 1,000 MG in SYRINGE 1 EACH IV SCH (20:50)
[2018-10-29] MEDS: ENOXAPARIN 40 MG/0.4 ML SYRINGE SUBCUT SCH (20:51)
[2018-10-29] MEDS: SIMVASTATIN 40 MG TABLET PO SCH (20:52)
[2018-10-30] MEDS: ALBUTEROL/IPRATROPIUM 3 ML NEB RESP TX SCH ×3 (01:07→13:48)
[2018-10-30 05:10] LABS: Basophils # 0.1 10*3/uL (0.0-0.2); Basophils % 0.8 % (0.0-0.8); Eosinophils # 0.3 10*3/uL (0.0-0.87); Eosinophils % 2.8 % (0.00-10.9); Hematocrit 32.7 VOL% (35.7-47.0); Hemoglobin 9.8 GM/DL (12.0-16.0); Immature Granulocytes % 0.4 %; Immature Granulocytes Absolute 0.04 #; Lymphocytes # 2.9 10*3/uL (1.4-4.0); Lymphocytes % 27.2 % (21.3-54.2); Mean Corpuscular Hemoglobin 22 PG (27-34); Mean Corpuscular Volume 74.5 FL (87-102); Mean Platelet Volume 10.7 FL (9.6-12.0); Monocytes # 0.8 10*3/uL (0.11-0.8); Monocytes % 7.2 % (1.7-12.7); Neutrophils # 6.6 10*3/uL (1.4-7.4); Neutrophils % 61.6 % (38.7-73.9); Platelet Count 381 T/CUMM (130-400); Red Blood Count 4.39 MC/CUMM (3.8-5.5); Red Cell Distribution Width 17.2 % (9.3-17.3); White Blood Count 10.6 T/CUMM (4-12)
[2018-10-30 05:21] LABS: Blood Urea Nitrogen 25 MG/DL (7-18); Calcium 8.9 MG/DL (8.5-10.1); Cholesterol 93 MG/DL (50-200); Glucose 132 MG/DL (74-106); HDL Cholesterol 29 MG/DL (40-60); Osmolality,Calculated 273.2 MOS/KG (273-304); Potassium 3.9 MMOL/L (3.5-5.1); Risk Ratio 3.21; Sodium 134 MMOL/L (136-145); Triglycerides 104 MG/DL (2-150); VLDL CHOLESTEROL 20.8 MG/DL
[2018-10-30 05:22] LABS: Troponin I 0.106 NG/ML (0.00-0.045)
[2018-10-30] MEDS ORDERED: FUROSEMIDE 40 MG TABLET PO SCH (09:00)
[2018-10-30] MEDS ORDERED: LOSARTAN 25 MG TABLET PO SCH (09:00)
[2018-10-30] MEDS: VENLAFAXINE XR 75 MG CAPSULE PO SCH (09:18)
[2018-10-30] MEDS: hydrALAZINE 25 MG TABLET PO SCH ×2 (09:18→14:06)
[2018-10-30] MEDS: INSULIN REGULAR 100 UNIT/ML SUBCUT SCH ×2 (09:18→12:29)
[2018-10-30] MEDS: CARVEDILOL 12.5 MG TABLET PO SCH (09:19)
[2018-10-30] MEDS: PANTOPRAZOLE 40 MG TABLET PO SCH (09:19)
[2018-10-30] MEDS: POTASSIUM CHLORIDE 20 MEQ TABLET PO SCH (09:19)
[2018-10-30] MEDS: RANOLAZINE 500 MG TABLET PO SCH (09:19)
[2018-10-30] MEDS: ASPIRIN CHEW 81 MG TABLET PO SCH (09:20)
[2018-10-30] MEDS: NICOTINE 21 MG/24 HR PATCH TRANSDERM SCH (09:21)
[2018-10-30] MEDS: TIROFIBAN 5,000 MCG/100 ML PREMIX IV SCH (11:26)
[2018-10-30 12:14] VITALS: BP 96/53
== END 2018-10-30 16:08 | disposition home health service (06) | DRG 246 ==
LOC: N.ED 15:07 → INTOOBSV 20:01 → SUATTDRO 20:01 → OBSVTOIN 20:01 → N.EDINP 20:01 → N.5E 21:01 → N.TELEN 10-29 14:19
PROVIDERS: ADMIT Family Medicine; ATTEND Hospitalist
PROC: CLCCHCL (ICD-10-PCS; 2018-10-29 11:45)